=== PATIENT | male | born 1975 | race Caucasian/White ===

== ENCOUNTER → 2020-02-28 07:41 | Outpatient (CLI) | payer OTHER, SELFPAY ==
--- NOTE | 2020-02-28 07:57 | US_ITS ---
PROCEDURE: US ABDOMEN LIMITED CLINICAL INDICATION: ABD PAIN Upper abdominal pain COMPARISON: No exams were available for comparison FINDINGS: PANCREAS: Pancreas is not well delineated due to overlying bowel gas. CT or MRI without and with contrast with pancreatic protocol may provide further evaluation if clinically desired. LIVER: No focal liver lesions demonstrated. Homogeneous echogenicity. No intrahepatic biliary ductal dilatation evident. There is appropriate direction of blood flow within a non dilated portal vein. There is mild hepatic steatosis. RIGHT KIDNEY: Unremarkable. Normal size and echogenicity. No hydronephrosis GALLBLADDER: No gallstones, gallbladder wall thickening, pericholecystic fluid, or biliary dilatation. IMPRESSION: Mild hepatic steatosis otherwise negative limited abdominal ultrasound as detailed above Dictated by: Jonathan Godoy MD 02/28/2020 18:06 Jonathan Godoy MD in [place] 02/28/2020 18:06
== END ==
PROVIDERS: PCP Family Medicine; Visit Provider Nurse Practitioner Family
DX: R10.11 Right upper quadrant pain (principal)
CPT/HCPCS: 76705

== ENCOUNTER → 2020-03-27 15:47 | Outpatient (CLI) | payer OTHER, SELFPAY | PROVIDERS: PCP Nurse Practitioner Family; Visit Provider Nurse Practitioner Family | DX: Z03.818 Encounter for observation for suspected exposure to other biological agents ruled out (principal) | CPT/HCPCS: U0003 ==

== ENCOUNTER 2020-10-27 09:34 | Emergency (ER) | payer OTHER, SELFPAY ==
[2020-10-27 09:45] VITALS: BP 140/96; PULSE 91; RESP 17; TEMP 37.1; O2SAT 98; BMI 30.7
--- NOTE | 2020-10-27 10:07 | HMH.EDUTC ---
[facility] [place] Clinical Impression: Gout attack Qualifiers: Gout site: foot Gout etiology: unspecified cause Laterality: left Qualified Code(s): M10.9 - Gout, unspecified Disposition: Home, Self-Care Condition on Discharge: Good Instructions: DI for Gout, Colchicine Additional Instructions: Take medication as prescribed Follow up with Family Doctor if no improvement or any worsening of symptoms Return if needed Straight to ER if any life threatening symptoms Prescriptions: Colchicine [Colcrys 0.6mg tablet] 0.6 mg PO DIRECTED #15 tab Transmission Status: Pending to [facility] #[id number] Referrals: Joshua Gilbert MD [Primary Care Provider] - As needed Forms: Work/School Release Time of Disposition: 10:29 Medical Decision Making - Adeel Inquiry Pt receiving controlled substance: No Adeel was queried for this patient: No Vital Signs: 10/27/20 09:45 Temperature 98.7 F Temperature Source Oral Pulse Rate [Right Brachial] 91 H Respiratory Rate 17 Blood Pressure [Right Arm] 140/96 H Blood Pressure Mean [Right Arm] 110 Blood Pressure Source [Right Arm] Automatic Cuff Blood Pressure Position [Right Arm] Sitting 02 Sat by Pulse Oximetry 98 Oxygen Delivery Method Room Air Orders (Tests/Meds): ED MEDICATIONS Discontinued Medications Generic Name Dose Route Start Last Admin Trade Name Barrieq PRN Reason Stop Dose Admin Ketorolac Tromethamine 60 mg 10/27/20 10:07 10/27/20 10:17 Ketorolac 60mg/2ml Vial IM 10/27/20 10:08 60 mg ONCE ONE Administration Methylprednisolone Sodium Succinate 125 mg 10/27/20 10:07 10/27/20 10:17 Methylprednisolone Sod Succ 125mg Vial IM 10/27/20 10:08 125 mg ONCE ONE Administration Medical Decision Narrative: Recommended uric acid blood test and patient declined states that this is pain like he has when he has gout attack and reports that he has taken Torodol and Solu medrol in the past without complications or reactions [facility] [place] - General Stated complaint: left foot pain Time Seen by Provider: 10/27/20 10:07 Mode of Arrival: Ambulatory Source of Information: Patient Limitations: No Limitations Description of Symptoms (Recalled from Triage Doc. by RN): PATIENT C/O GOUT TO LEFT FOOT SINCE THIS MORNING HEENT Symptoms (Recalled from RN notes): No Resp Symptoms (Recalled from RN notes): No Skin Symptoms (Recalled from RN notes): No MS Symptoms (Recalled from RN notes): Yes Functional Status (Recalled from RN notes): WNL - History of Present Illness Provider Complaint: Patient states that he has a history of gout attacks States that he woke up this morning having pain and redness in the side of his left foot like he has when he has a gout attack States that he usually has to come in and get a couple shots to help it - Related Data Home Medications Medication Instructions Recorded Confirmed Valsartan [Valsartan 80mg 80 mg PO DAILY 10/27/20 10/27/20 Tablets] Previous Rx's Medication Instructions Recorded Colchicine [Colcrys 0.6mg tablet] 0.6 mg PO DIRECTED #15 tab 10/27/20 Allergies Allergy/AdvReac Type Severity Reaction Status Date / Time fish oil [FISH OIL] Allergy Unknown Verified 07/21/19 17:02 shellfish derived Allergy Unknown THROAT Verified 07/21/19 17:02 [From SHELLFISH (FOOD/DRUG)] SWELLING - Worker's Comp Is this a Worker's Comp case?: No [facility] History - Hepatitis A Screen Drug use history?: No High risk sexual behaviors?: No History of sexually transmitted infection?: No Currently employed?: No Childcare worker?: No Do you have indoor plumbing?: Yes Do you have electricity?: Yes Attestation statement:: This patient has been screened for Hepatitis A risk factors. I have reviewed the patient's past medical history: Yes Medical History: Reports:: Hypertension Other Medical History: Reports: Arthritis, Other Comment: essential tremor Laterality Cases: Right: Carpal Tunnel Release, Bilat
[2020-10-27 10:30] VITALS: BP 140/96; PULSE 91; RESP 17; TEMP 37.1; O2SAT 98
== END 2020-10-27 10:36 | disposition home or self-care (01) ==
PROVIDERS: Emergency Provider Nurse Practitioner; PCP Family Medicine
DX: M10.072 Idiopathic gout, left ankle and foot (principal); I10 Essential (primary) hypertension; F17.210 Nicotine dependence, cigarettes, uncomplicated
CPT/HCPCS: 96372; 99202; G0463

== ENCOUNTER 2020-11-27 11:26 | Emergency (ER) | payer OTHER, SELFPAY ==
[2020-11-27 11:27] VITALS: BP 149/90; PULSE 101; RESP 18; TEMP 37; O2SAT 99; BMI 30.3
[2020-11-27 12:36] VITALS: BP 140/91; PULSE 105; RESP 18; TEMP 37.1; O2SAT 99; BMI 30.4
--- NOTE | 2020-11-27 12:46 | HMH.EDUTC ---
[facility] [place] Disposition Clinical Impression: Nausea vomiting and diarrhea Disposition: Home, Self-Care Condition on Discharge: Good Instructions: Diarrhea, Nausea and Vomiting-Adult Additional Instructions: Drink extra fluids with and between meals. If you have difficulty drinking, try very small amounts of water or suck on ice chips. ? Avoid fruit juices, as these do not replace minerals and can actually increase diarrhea. ? Children and adults can use sports drinks to replenish electrolytes. Younger children and infants should use products formulated for children, like oral rehydration solutions. ? Eat food in small amounts and let your stomach recover. ? Get lots of rest. You may feel tired or weak. ? No greasy or fried foods for the next 24-48 hours BRAT diet Bananas Rice Apples and [place] ? Make sure to drink plenty of liquids ? Return if needed ? Straight to ER if any life threatening symptoms ? Zofran as prescribed ? You was given an outpatient order for diarrhea panel, please collect specimen and bring back to outpatient lab then call back to the [facility] or follow up with family doctor for results ? Follow up with family doctor in the next 48-72 hours if no improvement or any worsening of symptoms Prescriptions: Ondansetron [Zofran 4mg ODT] 4 mg PO TIDP PRN #12 tab PRN Reason: Nausea Transmission Status: Received by [facility] #[id number] Referrals: Provider,Referral, [Primary Care Provider] - As needed Forms: Work/School Release Time of Disposition: 14:15 Medical Decision Making - Adeel Inquiry Pt receiving controlled substance: No Adeel was queried for this patient: No Vital Signs: 11/27/20 11:27 11/27/20 12:36 11/27/20 13:50 Temperature 98.6 F 98.7 F 98 F Temperature Source Oral Oral Pulse Rate 92 H Pulse Rate [Right] 101 H 105 H Respiratory Rate 18 18 16 Blood Pressure 132/89 Blood Pressure [Right Arm] 149/90 H 140/91 H Blood Pressure Mean [Right Arm] 109 107 02 Sat by Pulse Oximetry 99 99 Oxygen Delivery Method Room Air - Lab Data Lab Results 11/27/20 12:41: Influenza Type A Ag Negative, Influenza Type B Ag Negative Orders (Tests/Meds): ED MEDICATIONS Discontinued Medications Generic Name Dose Route Start Last Admin Trade Name Freq PRN Reason Stop Dose Admin Sodium Chloride 1,000 mls @ 999 mls/hr 11/27/20 13:15 11/27/20 13:20 Sod Chlor 0.9% 1000ml Bag IV 11/27/20 14:15 999 mls/hr .Q1H1M MARILYN Administration Ondansetron HCl 4 mg 11/27/20 12:47 11/27/20 13:20 Ondansetron 4mg/2ml Vial IV 11/27/20 12:48 4 mg ONCE ONE Administration Medical Decision Narrative: Fluid bolus complete patient states that he is feeling much better no vomiting or diarrhea since arrival [facility] [place] HPI - General Stated complaint: vomiting, diarrhea, fever Time Seen by Provider: 11/27/20 12:46 Mode of Arrival: Ambulatory Limitations: No Limitations Description of Symptoms (Recalled from Triage Doc. by RN): pt thinks he has the flu or food poisoning. pt says he has had n/v/d and chills since two hours after eating at [employer] wednesday. HEENT Symptoms (Recalled from RN notes): No Resp Symptoms (Recalled from RN notes): No Skin Symptoms (Recalled from RN notes): No MS Symptoms (Recalled from RN notes): No Functional Status (Recalled from RN notes): na - History of Present Illness Provider Complaint: Patient state that he eat a resturant on Wednesday and ever since he has been having vomiting and diarrhea State that he is not sure if he may have got food poison or if he has a stomach bug State that he felt like he was going to get dehydrated so he came in to get checked - Related Data Home Medications Medication Instructions Recorded Confirmed Valsartan [Valsartan 80mg 80 mg PO DAILY 10/27/20 10/27/20 Tablets] Previous Rx's Medication Instructions Recorded Colchicine [Colcrys 0.6mg tablet] 0.6 mg PO DIRECTED #15 tab 10/27/20 Ondansetron [Zofran 4
[2020-11-27 13:21] LABS: UTC Influenza A Antigen Negative (Negative); UTC Influenza B Antigen Negative (Negative)
[2020-11-27 13:50] VITALS: BP 132/89; PULSE 92; RESP 16; TEMP 36.6
== END 2020-11-27 14:20 | disposition home or self-care (01) ==
PROVIDERS: Emergency Provider Nurse Practitioner
DX: R11.2 Nausea with vomiting, unspecified (principal); I10 Essential (primary) hypertension; F17.210 Nicotine dependence, cigarettes, uncomplicated
CPT/HCPCS: 87804; 96365; 96367; 99202; G0463; J2405

== ENCOUNTER → 2021-03-31 19:25 | Outpatient (CLI) | payer OTHER, SELFPAY | PROVIDERS: Visit Provider Nurse Practitioner Family | DX: Z20.822 Contact with and (suspected) exposure to COVID-19 (principal) | CPT/HCPCS: C9803; U0003; U0005 ==

== ENCOUNTER 2021-08-14 15:24 | Emergency (ER) | payer OTHER, SELFPAY ==
[2021-08-14 16:13] VITALS: BP 171/114; PULSE 104; RESP 16; TEMP 36.8; O2SAT 96; BMI 30.3
--- NOTE | 2021-08-14 16:15 | HMH.EDUTC ---
[facility] [place] Clinical Impression: Serous otitis media Qualifiers: Chronicity: acute Laterality: bilateral Recurrence: non-recurrent Qualified Code(s): H65.03 - Acute serous otitis media, bilateral Disposition: Home, Self-Care Condition on Discharge: Good Instructions: Middle Ear Infection Additional Instructions: Drink plenty of fluids. Take tylenol or ibuprofen for pain or fever. Take the medications as directed. Follow up with your regular doctor. GO TO THE ER FOR ANY WORSENING SYMPTOMS Don't start the oral steroids until tomorrow, since you had the shot here today. Avoid products with pseudophed in them. It appears they run your blood pressure up. Prescriptions: Amoxicillin [Amoxicillin 500mg Tab] 500 mg PO TID 10 Days #30 tab Transmission Status: Received by [facility] #[id number] methylPREDNISolone [Medrol] 4 mg PO DIRECTED 6 Days #21 packet Transmission Status: Received by [facility] #[id number] Referrals: Joshua Gilbert MD [Primary Care Provider] - Forms: Work/School Release Time of Disposition: 17:10 Medical Decision Making - Medical Records Medical records reviewed: No: I reviewed the patient's medical records. - Adeel Inquiry Pt receiving controlled substance: No Vital Signs: 08/14/21 16:13 08/14/21 17:21 Temperature 98.2 F 98.2 F Temperature Source Oral Pulse Rate 104 H Pulse Rate [Left] 104 H Respiratory Rate 16 16 Blood Pressure 171/114 H Blood Pressure [Right Arm] 171/114 H Blood Pressure Mean [Right Arm] 133 02 Sat by Pulse Oximetry 96 - Lab Data Lab results reviewed: Yes: I reviewed the patient's lab results. Orders (Tests/Meds): ED MEDICATIONS Discontinued Medications Generic Name Dose Route Start Last Admin Trade Name Freq PRN Reason Stop Dose Admin Dexamethasone Sodium Phosphate 8 mg 08/14/21 16:56 Dexamethasone 4mg/Ml 1ml Vial IM 08/14/21 16:57 ONCE ONE Methylprednisolone Sodium Succinate 125 mg 08/14/21 17:03 08/14/21 17:04 Methylprednisolone Sod Succ 125mg Vial IM 08/14/21 17:04 125 mg ONCE ONE Administration [facility] [place] - General Stated complaint: both ears possible fluid Time Seen by Provider: 08/14/21 16:15 - History of Present Illness Provider Complaint: He states that for the past 2 days he has had bilateral ear pressure, mild pain and dizziness when he has to move his head quickly. He gets ear infections this time of the year. He took claritin d this morning. It did seem to help his ear pressue some, but it caused his blood pressure to go up. He denies any fever, chills, cough, or chest congestion. He does have sinus congestion and clear nasal drainage. - Related Data Home Medications Medication Instructions Recorded Confirmed Valsartan [Valsartan 80mg 80 mg PO DAILY 10/27/20 03/31/21 Tablets] Previous Rx's Medication Instructions Recorded colchicine 0.6 mg tablet 0.6 mg PO BID #30 tab 12/10/20 Amoxicillin [Amoxicillin 500mg Tab] 500 mg PO TID 10 Days #30 tab 08/14/21 methylPREDNISolone [Medrol] 4 mg PO DIRECTED 6 Days #21 08/14/21 packet Allergies Allergy/AdvReac Type Severity Reaction Status Date / Time fish oil [FISH OIL] Allergy Unknown Verified 03/31/21 13:22 shellfish derived Allergy Unknown THROAT Verified 03/31/21 13:22 [From SHELLFISH (FOOD/DRUG)] SWELLING [facility] History - Hepatitis A Screen Attestation statement:: This patient has been screened for Hepatitis A risk factors. I have reviewed the patient's past medical history: Yes Medical History: Reports:: Hypertension Other Medical History: Reports: Arthritis, Other Comment: essential tremor. gout Laterality Cases: Right: Carpal Tunnel Release, Bilateral: Arthroscopy Knee Amputation: No Fractures: No - Social History Smoking Status: Current every day smoker Tobacco Type: cigarettes # Packs/Day (cigarettes): 1 #Yrs smoked (if former smoker): 10 Alcohol Intake: never
[2021-08-14 17:21] VITALS: BP 171/114; PULSE 104; RESP 16; TEMP 36.8
== END 2021-08-14 17:22 | disposition home or self-care (01) ==
PROVIDERS: Emergency Provider Nurse Practitioner Family; PCP Family Medicine
DX: H65.03 Acute serous otitis media, bilateral (principal); R42 Dizziness and giddiness; I10 Essential (primary) hypertension; F17.210 Nicotine dependence, cigarettes, uncomplicated
CPT/HCPCS: 96375; 99202; 99212; 99213; G0463

== ENCOUNTER 2022-02-04 11:14 | Emergency (ER) | payer OTHER, SELFPAY ==
[2022-02-04 12:15] VITALS: BP 150/90; PULSE 78; RESP 18; TEMP 36.6; O2SAT 97; BMI 30.3
--- NOTE | 2022-02-04 12:42 | HMH.EDUTC ---
[facility] [place] Disposition Clinical Impression: Gout attack Qualifiers: Gout site: ankle Gout etiology: unspecified cause Laterality: left Qualified Code(s): M10.9 - Gout, unspecified Disposition: Home, Self-Care Condition on Discharge: Good Instructions: DI for Gout, Gout, Colchicine Additional Instructions: Over the counter Ibuprofen may help with pain Follow up with your Family Doctor if no improvement or any worsening of symptoms Take medication as prescribed Return if needed Straight to ER if any life threatening symptoms Prescriptions: Colchicine [Colcrys 0.6mg tablet] 0.6 mg PO DIRECTED #3 tab Transmission Status: Pending to [facility] #[id number] Referrals: Juan Pack MD [Primary Care Provider] - As needed Time of Disposition: 12:56 Medical Decision Making - Adeel Inquiry Pt receiving controlled substance: No Adeel was queried for this patient: No Vital Signs: 02/04/22 12:15 Temperature 97.8 F Temperature Source Oral Pulse Rate [Right Brachial] 78 Respiratory Rate 18 Blood Pressure [Right Arm] 150/90 H Blood Pressure Mean [Right Arm] 110 Blood Pressure Source [Right Arm] Automatic Cuff Blood Pressure Position [Right Arm] Sitting 02 Sat by Pulse Oximetry 97 Oxygen Delivery Method Room Air Medical Decision Narrative: Patient declined uric acid and declined Toradol and Solumedrol injections [facility] [place] HPI - General Stated complaint: gout in left ankle Time Seen by Provider: 02/04/22 12:42 Mode of Arrival: Ambulatory Source of Information: Patient Limitations: No Limitations Description of Symptoms (Recalled from Triage Doc. by RN): PATIENT C/O GOUT IN LEFT ANKLE SINCE THIS MORNING. HE REPORTS HE GETS IT TWICE A YEAR HEENT Symptoms (Recalled from RN notes): No Resp Symptoms (Recalled from RN notes): No Skin Symptoms (Recalled from RN notes): No MS Symptoms (Recalled from RN notes): Yes Functional Status (Recalled from RN notes): WNL - History of Present Illness Provider Complaint: Patient state that he has had gout severa times and usually gets it about twice a year States that he woke up this morning with pain in his left ankle like he gets with gout so he came in to see if he could get the purple pills that usually helps him - Related Data Home Medications Medication Instructions Recorded Confirmed Valsartan [Valsartan 80mg 80 mg PO DAILY 05/02/21 10/04/21 Tablets] Previous Rx's Medication Instructions Recorded colchicine 0.6 mg tablet 0.6 mg PO BID #30 tab 12/10/20 Amoxicillin [Amoxicillin 500mg Tab] 500 mg PO TID 10 Days #30 tab 08/14/21 methylPREDNISolone [Medrol] 4 mg PO DIRECTED 6 Days #21 08/14/21 packet Colchicine [Colcrys 0.6mg tablet] 0.6 mg PO DIRECTED #3 tab 02/04/22 Allergies Allergy/AdvReac Type Severity Reaction Status Date / Time fish oil [FISH OIL] Allergy Unknown Verified 03/31/21 13:22 shellfish derived Allergy Unknown THROAT Verified 03/31/21 13:22 [From SHELLFISH (FOOD/DRUG)] SWELLING - Worker's Comp Is this a Worker's Comp case?: No [facility] History - Hepatitis A Screen Attestation statement:: This patient has been screened for Hepatitis A risk factors. I have reviewed the patient's past medical history: Yes Medical History: Reports:: Hypertension Other Medical History: Reports: Arthritis, Other Comment: essential tremor. gout Laterality Cases: Right: Carpal Tunnel Release, Bilateral: Arthroscopy Knee Amputation: No Fractures: No - Social History Smoking Status: Current every day smoker Tobacco Type: cigarettes # Packs/Day (cigarettes): 1 #Yrs smoked (if former smoker): 10 Alcohol Intake: never Alcohol Intake Frequency:: holidays/special occasions only Substance Use Type: denies use Occupational Status: other Housing: house Household Members: children Comment: Pt states that he travels to [place] & [place] for work. Family Hx:: Stroke, Cancer ROS Obtained: Yes All systems reviewed & no additional complaints, Yes
[2022-02-04 12:55] VITALS: BP 150/90; PULSE 78; RESP 18; TEMP 36.6; O2SAT 97
== END 2022-02-04 13:03 | disposition home or self-care (01) ==
PROVIDERS: Emergency Provider Nurse Practitioner; PCP Family Medicine
DX: M10.9 Gout, unspecified (principal); F17.210 Nicotine dependence, cigarettes, uncomplicated
CPT/HCPCS: 99212; G0463

== ENCOUNTER 2022-03-23 17:09 | Emergency (ER) | payer OTHER, SELFPAY ==
[2022-03-23 17:25] VITALS: BP 150/92; PULSE 90; RESP 20; TEMP 36.7; O2SAT 98; BMI 30.4
--- NOTE | 2022-03-23 17:38 | EXP.UTC ---
Discharge Plan Disposition Patient Disposition: Home, Self-Care Condition: Good Prescriptions Prescriptions: New cyclobenzaprine 10 mg tablet 10 mg PO TID PRN (Reason: muscle spasm) Qty: 15 0RF etodolac 200 mg capsule 200 mg PO Q8H PRN (Reason: pain) Qty: 12 0RF No Action colchicine 0.6 mg tablet 0.6 mg PO BID Qty: 30 0RF Rx Instructions: Take 2 tablets now and then 1 tablet an hour later afterwards take one table twice daily. methylprednisolone 4 MG tablets,dose pack 4 mg PO DIRECTED 6 Days Qty: 21 0RF amoxicillin 500 MG tablet 500 mg PO TID 10 Days Qty: 30 0RF colchicine 0.6 MG tablet 0.6 mg PO DIRECTED Qty: 3 0RF Rx Instructions: Take 2 tablets (1.2mg) now followed by 1 tablet (0.6mg) 1 hour later. valsartan 80 MG tablet 80 mg PO DAILY Referrals Follow up/Referrals: Emilia Parada APRN [Primary Care Provider] - See instructions Activity Restrictions/Add. Instructions Additional Instructions/Restrictions: *Etodolac ladarius 8 hours with meal as needed for pain/inflammation *Remember you had a Toradol shot in the clinic today, which is similar to Motrin and Etodolac so do not take any more tonight *Not additional anti-inflammatory like Ibuprofen motrin, aleve, advil with the above amount of Etodolac. You can still take Tylenol every 4 hours as needed if you need something else for pain *Ice 20 minutes every 2 hours for the first 48 hours after the initial injury followed by moist heat every 20 minutes 3-4 times a day to affected area *Muscle relaxer every 8 hours as needed for muscle spasms but remember, it WILL cause drowsiness You cannot take it and drive, operate machinery or care for small children. *Keep this area active, no movement leads to more stiffness, However take it easy and avoid heavy lifting pushing or pulling *Follow up with you family doctor if no improvement for further treatment Clinical Impressions Clinical Impression: Low back pain Stand Alone Forms Stand Alone Forms: Work/School Release Instructions Patient Instructions: Low Back Pain, Cyclobenzaprine, Etodolac Discharge ED Provider: Rosa Raza [facility] General Stated complaint: back pain Time Seen by Provider: 03/23/22 17:38 History of Present Illness Provider Complaint: Patient states that he bent over to put on his shoes this morning and he felt his back go out States that he has some slipped disks in his back and when this happens he has to get something to help with the inflammation to help ease his back pain States that today his back has continued throughout the day so this evening he came in to get it checked Denies fever, denies loss of control of bowel or bladder Related Data Home Medications Medication Instructions Recorded Confirmed valsartan 80 mg tablet 80 mg PO DAILY Hypertension 10/27/20 03/31/21 Previous Rx's Medication Instructions Recorded colchicine 0.6 mg tablet 0.6 mg PO BID #30 tabs 12/10/20 amoxicillin 500 mg tablet 500 mg PO TID 10 days #30 tabs 08/14/21 methylprednisolone 4 mg tablets in 4 mg PO DIRECTED 6 days #21 08/14/21 a dose pack packets colchicine 0.6 mg tablet 0.6 mg PO DIRECTED #3 tabs 02/04/22 cyclobenzaprine 10 mg tablet 10 mg PO TID PRN muscle spasm #15 03/23/22 tabs etodolac 200 mg capsule 200 mg PO Q8H PRN pain #12 caps 03/23/22 Allergies Allergy/AdvReac Type Severity Reaction Status Date / Time fish oil [FISH OIL] Allergy Unknown Verified 03/31/21 13:22 shellfish derived Allergy Unknown THROAT Verified 03/31/21 13:22 [From SHELLFISH (FOOD/DRUG)] SWELLING PFSH PFS Medical History (Updated 03/23/22 @ 17:47 by Rosa Raza APRN) Hyperlipidemia Hypertension Social History (Updated 03/23/22 @ 17:41 by Britt Monae RN) Smoking Status: Current every day smoker tobacco type: cigarettes packs per day: 1 alcohol intake: never substance use type: denies use current occupational status: ot
[2022-03-23 18:00] VITALS: BP 150/92; PULSE 90; RESP 20; TEMP 36.7; O2SAT 98
== END 2022-03-23 18:09 | disposition home or self-care (01) ==
PROVIDERS: Emergency Provider Nurse Practitioner; PCP Nurse Practitioner Family
DX: M54.50 Low back pain, unspecified (principal); I10 Essential (primary) hypertension; E78.5 Hyperlipidemia, unspecified; M62.838 Other muscle spasm; F17.210 Nicotine dependence, cigarettes, uncomplicated; Z79.52 Long term (current) use of systemic steroids; Z91.013 Allergy to seafood
CPT/HCPCS: 96372; 99213; G0463

== ENCOUNTER 2023-05-09 11:17 | Emergency (ER) | payer OTHER, SELFPAY ==
[2023-05-09 11:35] VITALS: BP 149/98; PULSE 112; RESP 20; TEMP 37.1; O2SAT 98; BMI 30.3
--- NOTE | 2023-05-09 11:53 | EXP.UTC ---
Discharge Plan Disposition Patient Disposition: Home, Self-Care Condition: Good Prescriptions Prescriptions: New colchicine [Colcrys] 0.6 mg tablet 0.6 mg PO DIRECTED Qty: 6 0RF Rx Instructions: Take (2) of the 0.6mg tablets now wait one hour then take (1) of the 0.6mg tablets for gout flare May repeat regimen in 72 hours if still having symptoms No Action tizanidine 4 mg capsule 4 mg PO BID PRN (Reason: muscle spasticity) Qty: 20 0RF naproxen 500 mg tablet 500 mg PO BID Qty: 30 0RF propranolol 160 mg capsule,extended release 24 hr 160 mg PO DAILY metformin 500 mg tablet extended release 24 hr 500 mg PO DAILY Patient Comments: TAKE 1 TABLET BY MOUTH EVERY DAY WITH THE EVENING MEAL losartan 100 mg tablet 100 mg PO DAILY Patient Comments: TAKE 1 TABLET BY MOUTH EVERY DAY Referrals Follow up/Referrals: Juan Pack MD [Primary Care Provider] - See instructions Activity Restrictions/Add. Instructions Additional Instructions/Restrictions: Take medication as prescribed Follow up with your Family Doctor for further evaluation and treatment REturn if needed Striaght to ER if any life threatening symptoms Clinical Impressions Clinical Impression: Gout attack Qualifiers: Gout site: unspecified site Gout etiology: unspecified cause Qualified Code(s): M10.9 - Gout, unspecified Instructions Patient Instructions: Gout, DI for Gout Discharge ED Provider: Rosa Raza [facility] General Stated complaint: PAIN LEFT ANKLE Mode of Arrival: Ambulatory Source of Information: Patient Limitations: No Limitations Time Seen by Provider: 05/09/23 11:53 Description of Symptoms (Recalled from Triage Doc. by RN): PATIENT C/O PAIN AND BURNING IN LEFT ANKLE SINCE THIS MORNING HEENT Symptoms (Recalled from RN notes): No Resp Symptoms (Recalled from RN notes): No Skin Symptoms (Recalled from RN notes): No MS Symptoms (Recalled from RN notes): Yes Functional Status (Recalled from RN notes): WNL History of Present Illness Provider Complaint: Patient states that he has a history of gout States that he woke up this morning with pain in his left ankle and it was sore to the touch and hurts even for his sock to touch it like he gets when he has gout States he came in to get something to help Related Data Home Medications Medication Instructions Recorded Confirmed propranolol 160 mg capsule,24 160 mg PO DAILY 08/12/22 02/17/23 hr,extended release losartan 100 mg tablet 100 mg PO DAILY 11/16/22 02/17/23 metformin 500 mg tablet,extended 500 mg PO DAILY 11/16/22 02/17/23 release 24 hr Previous Rx's Medication Instructions Recorded naproxen 500 mg tablet 500 mg PO BID #30 tabs 02/15/23 tizanidine 4 mg capsule 4 mg PO BID PRN muscle spasticity 02/15/23 #20 caps colchicine 0.6 mg tablet (Colcrys) 0.6 mg PO DIRECTED #6 tabs 05/09/23 Allergies Allergy/AdvReac Type Severity Reaction Status Date / Time fish oil [FISH OIL] Allergy Unknown Verified 02/17/23 14:07 shellfish derived Allergy Unknown THROAT Verified 02/17/23 14:07 [From SHELLFISH (FOOD/DRUG)] SWELLING Worker's Comp Is this a Worker's Comp case?: No [facility] Disclaimer: The information contained in this section may have been updated after the patient was seen, as this information can be updated by other users. Medical History Hyperlipidemia Hypertension Social History Smoking Status: Current every day smoker tobacco type: cigarettes packs per day: 1 alcohol intake: never substance use type: denies use current occupational status: other Travel in the last 8 weeks: None household members: children housing: house ROS Obtained: Yes All systems reviewed & no additional complaints except as documented and Yes Systems reviewed as appropriate & no additional complaints exc
[2023-05-09 12:26] VITALS: BP 149/98; PULSE 112; RESP 20; TEMP 37.1; O2SAT 98
== END 2023-05-09 12:30 | disposition home or self-care (01) ==
PROVIDERS: Emergency Provider Nurse Practitioner; PCP Family Medicine
DX: M10.072 Idiopathic gout, left ankle and foot (principal); F17.210 Nicotine dependence, cigarettes, uncomplicated; I10 Essential (primary) hypertension; E78.5 Hyperlipidemia, unspecified; M25.572 Pain in left ankle and joints of left foot
CPT/HCPCS: 96372; 99212; 99214; G0463

== ENCOUNTER → 2023-05-19 23:24 | Outpatient (CLI) | payer OTHER, SELFPAY ==
[2023-05-19 18:06] LABS: Basophils # 0.1 K/mm3 (0-0.2); Basophils % 0.8 % (0.1-2.0); Eosinophils # 0.3 K/mm3 (0.0-0.4); Eosinophils % 2.7 % (0.1-12.0); Hematocrit 45.1 % (42.0-52.0); Hemoglobin 14.8 g/dL (14.1-18.0); Lymphocytes # 3.7 K/mm3 (0.7-4.5); Lymphocytes % 33.2 % (10-50); Mean Corpuscular HGB Conc 32.8 g/dL (31.8-35.4); Mean Corpuscular Hemoglobin 29.5 pg (27.0-31.2); Mean Platelet Volume 9.1 fl (7.4-10.4); Monocytes # 0.7 K/mm3 (0.1-1.0); Monocytes % 6.7 % (1.7-9.3); Neutrophils # 6.3 K/mm3 (1.8-7.8); Neutrophils % 56.6 % (37.0-80.0); Platelet Count 271 K/mm3 (142-424); Red Blood Count 5.01 M/mm3 (4.60-6.20); White Blood Count 11.1 K/mm3 (4.8-10.8)
[2023-05-19 18:12] LABS: Alanine Aminotransferase 24 U/L (12-78); Alkaline Phosphatase 102 U/L (38-126); Aspartate Amino Transferase 26 U/L (17-59); Bilirubin,Total 0.4 mg/dl (0.2-1.3); Blood Urea Nitrogen 8 mg/dl (9-20); Calcium 9.5 mg/dl (8.4-10.2); Carbon Dioxide 29 mmol/L (22.0-30.0); Chloride 100 mmol/L (98-107); Estimated Glomerular Filt Rate 104 ml/min (>60); GFR (African American) 125 ML/MIN (>60); Glucose 115 mg/dl (74-100); Total Protein,Serum 7.5 g/dl (6.3-8.2); Uric Acid 6.9 mg/dl (3.5-8.5)
[2023-05-19 18:15] LABS: Albumin Level 4.2 g/dl (3.5-5.0); Albumin/Globulin Ratio 1.3 (1.1-1.8); Globulin 3.3 g/dL (1.3-3.2); Potassium 4.4 mmoL/L (3.5-5.1)
[2023-05-19 18:56] LABS: Anion Gap 13.4 mEq/L (5-15); Sodium 138 mmol/L (136-145)
== END ==
LOC: LAB.DROPOF 23:24
PROVIDERS: PCP Family Medicine; Visit Provider Nurse Practitioner Family
DX: M10.9 Gout, unspecified (principal); M25.472 Effusion, left ankle; M25.572 Pain in left ankle and joints of left foot
CPT/HCPCS: 80053; 84550; 85025

== ENCOUNTER 2023-05-28 11:38 | Emergency (ER) | payer OTHER, SELFPAY ==
[2023-05-28 12:35] VITALS: BP 166/98; PULSE 97; RESP 18; TEMP 36.7; O2SAT 98; BMI 33.3
--- NOTE | 2023-05-28 12:37 | EXP.UTC ---
Discharge Plan Disposition Patient Disposition: Home, Self-Care Condition: Good Prescriptions Prescriptions: New methylprednisolone 4 mg Tablets,Dose Pack 4 mg PO DIRECTED Qty: 21 0RF No Action propranolol 160 mg capsule,extended release 24 hr 160 mg PO DAILY metformin 500 mg tablet extended release 24 hr 500 mg PO DAILY Patient Comments: TAKE 1 TABLET BY MOUTH EVERY DAY WITH THE EVENING MEAL losartan 100 mg tablet 100 mg PO DAILY Patient Comments: TAKE 1 TABLET BY MOUTH EVERY DAY allopurinol 300 mg tablet 300 mg PO DAILY Qty: 90 3RF colchicine [Colcrys] 0.6 mg tablet 0.6 mg PO DIRECTED Qty: 6 0RF Rx Instructions: Take (2) of the 0.6mg tablets now wait one hour then take (1) of the 0.6mg tablets for gout flare May repeat regimen in 72 hours if still having symptoms simvastatin 40 mg tablet 40 mg PO DAILY Patient Comments: TAKE 1 TABLET BY MOUTH ONCE DAILY IN THE EVENING Referrals Follow up/Referrals: Juan Pack MD [Primary Care Provider] - See instructions Activity Restrictions/Add. Instructions Additional Instructions/Restrictions: Rest the extremity, Elevate the extremity as tolerated while you are resting. Take the steroids (methylprednisone) as directed, but don't start them until tomorrow since you had the steroid shot here today. Follow up with your regular doctor. GO TO THE ER FOR ANY WORSENING SYMPTOMS Clinical Impressions Clinical Impression: Gout attack Stand Alone Forms Stand Alone Forms: Work/School Release Instructions Patient Instructions: Gout, DI for Gout, Dexamethasone Injection Discharge ED Provider: Avel Love [facility] General Stated complaint: possible gout in ankle keft Time Seen by Provider: 05/28/23 12:37 History of Present Illness Provider Complaint: He states that for the past 2 days he has had worsening left ankle pain. He denies any injury. He states that he has had a history of gout. His gout symptoms usually hit him in this ankle, so he believes that is what is causing his current symptoms. Related Data Home Medications Medication Instructions Recorded Confirmed propranolol 160 mg capsule,24 160 mg PO DAILY 08/12/22 05/28/23 hr,extended release losartan 100 mg tablet 100 mg PO DAILY 11/16/22 05/28/23 metformin 500 mg tablet,extended 500 mg PO DAILY 11/16/22 05/28/23 release 24 hr simvastatin 40 mg tablet 40 mg PO DAILY 05/28/23 05/28/23 Previous Rx's Medication Instructions Recorded allopurinol 300 mg tablet 300 mg PO DAILY #90 tabs 05/19/23 colchicine 0.6 mg tablet (Colcrys) 0.6 mg PO DIRECTED #6 tabs 05/19/23 methylprednisolone 4 mg tablets in 4 mg PO DIRECTED #21 tabs 05/28/23 a dose pack Allergies Allergy/AdvReac Type Severity Reaction Status Date / Time fish oil [FISH OIL] Allergy Unknown Verified 05/28/23 12:52 shellfish derived Allergy Unknown THROAT Verified 05/28/23 12:52 [From SHELLFISH (FOOD/DRUG)] SWELLING PFSH PFS Disclaimer: The information contained in this section may have been updated after the patient was seen, as this information can be updated by other users. Medical History (Updated 05/28/23 @ 13:12 by Avel Love APRN) Gout attack Hyperlipidemia Hypertension Low back pain Nausea vomiting and diarrhea Serous otitis media Surgical History No significant past surgical history Family History Other No significant family history Social History Smoking Status: Current every day smoker tobacco type: cigarettes packs per day: 1 alcohol intake: never substance use type: denies use current occupational status: other Travel in the last 8 weeks: None household members: children housing: house ROS Obtained: Yes All systems reviewed & no additional co
[2023-05-28 13:49] VITALS: BP 166/92; PULSE 90; RESP 19; TEMP 36.8; O2SAT 99
== END 2023-05-28 13:50 | disposition home or self-care (01) ==
LOC: ER 11:40 → UTC 11:42
PROVIDERS: Emergency Provider Nurse Practitioner Family; PCP Family Medicine
DX: M10.072 Idiopathic gout, left ankle and foot (principal); I10 Essential (primary) hypertension; E78.5 Hyperlipidemia, unspecified; F17.210 Nicotine dependence, cigarettes, uncomplicated
CPT/HCPCS: 96372; 99212; 99214; G0463

== ENCOUNTER 2023-10-16 04:05 | Day surgery (SDC) | payer OTHER, SELFPAY ==
[2023-10-16] VITALS (56 sets, daily range): BP systolic 101–207; BP diastolic 66–164; PULSE 80–110; RESP 16–95; TEMP 35.1–36.8; O2SAT 83–936; BMI 34.0
--- NOTE | 2023-10-16 | IR_ITS ---
APPROVED REPORT Patient Location: Emergent Bag Bailer: ULISES Herrera RT (R) PROCEDURES Left heart catheterization Left ventriculogram Selective coronary angiogram Mechanical thrombectomy to the mid LAD Drug-eluting stent deployment to the mid LAD Drug-eluting stent deployment to the mid circumflex artery INDICATION Acute anterior myocardial infarction, Coronary artery disease, Status post cardiac arrest with cardiogenic shock with interval resolution of cardiogenic shock Informed consent was obtained prior to the procedure. COMPLICATIONS None Estimated Blood Loss: Less than 10 mls TECHNIQUE Upon arrival to the Floor Installer from the emergency department patient was overbreathing the ventilator and fighting the ventilator significantly. Because of the C-spine fracture and endotracheal intubation 100 mg of vecuronium was administered intravenously. One percent lidocaine used to anesthetize the right anterior aspect of the wrist. The right radial artery was accessed via the Seldinger technique. A 6 [place] sheath was placed in the right radial artery. 2.5 mg of Verapamil, 800 mcg of nitroglycerin, 1mg Lidocaine and 5000 U Heparin were given through the arterial sheath. The papa catheter was also used to perform left heart catheterization, left ventriculogram and selective coronary angiogram. Therapeutic heparin was administered giving a therapeutic ACT. The guide catheter was placed in the left main artery followed by a Choice PT extra-support wire being used to push through the acute thrombosis. A Politapollra mechanical thrombectomy catheter was advanced and a thrombus was aspirated. Following this a 3 mm x 12 mm noncompliant balloon was deployed at 18 [place] predilated the stenosis. A 3.5 x 12 mm Herminio frontier stent was deployed at 18 [place] reducing the critical stenosis to 0%. An initial severe stenosis was identified further down in the mid LAD which was along a tortuous bend and with subsequent injections appeared to improve most likely reflecting wire bias combined with wire spasm. An additional wire was placed into the circumflex artery and a 3.5 x 18 mm [place] frontier stent was deployed at 14 [place] reducing the severe stenosis to 0%. FLORA 0 flow was present down the LAD initially with FLORA-3 flow at the end of the procedure. FLORA-3 flow was present in the circumflex artery before and after the procedure. With improvement of the mid LAD stenosis with subsequent injection the wire was pulled back and the catheter was then used to perform right coronary artery angiography. At the end of the procedure the apparatus was removed the sheath was removed and hemostasis was achieved using TR banding. At the end of the interventional procedure patient was hypertensive 180/110 mmHg therefore nipride gtt was started along with propofol for sedation. ANGIOGRAPHIC RESULTS The left main artery Normal The left anterior descending artery Initially thrombosed immediately after a small diagonal artery and distal to the first septal executive kitchen manager. Following stenting there was wide patency of the stent. There was an additional 40 to 50% mid LAD stenosis. Given the FLORA-3 flow no additional intervention was performed on this mid LAD stenosis The circumflex artery Nondominant yet still large with a 70% stenosis in the mid large first obtuse marginal artery The right coronary artery Dominant with proximal long 50% stenosis and distal 20% stenoses The GOMEZ ventriculogram reveals Mid anterior apical hypokinesis estimate ejection fraction 20 to 25% The left ventricular end-diastolic pressure 35 mmHg Ascending aorta is dilated with no aneurysm or dissection identified IMPRESSION Acute anterior myocardial infarction as described above Successful mechanical thrombectomy followed by drug-eluting stent deployment to the mid LAD reducing the 100% occlusion to 0% Persistent 40 to 50% mid LAD stenosis believed to be mostly from wire bias/spasm possibly with some degree of atherosclerotic plaque however still accompanied by FLORA-3 flow therefore no manipulation or intervention was performed on this vessel Severe stenosis in the circumflex artery with successful stenting reducing the lesion to 0% Moderate nonflow limiting stenosis in the proximal dominant right coronary Mid anterior apical defect with reduced ejection fraction Elevated LVEDP Known C6 compression fracture believed to be acute fracture Known left-sided pneumothorax with chest tube in place Presence of NG tube with 180 mg of Brilinta and 325 mg of aspirin being placed on the NG tube Right femoral arterial access line PLAN 1. Start nipride drip due to hypertension and LV dysfunction 2. Continue Brilinta 90 mg twice daily and aspirin 81 mg daily 3. Supportive care for C-spine fracture with continued C-spine immobilization 4. Supportive care for left pneumothorax with left chest tube 5. Contact has been made with [facility] to transfer patient 6. Continue propofol drip Electronically signed by : Thanh Pittman MD 10/16/2023 08:01:15
[2023-10-16] MEDS: EPINEPHrine 0.1 MG/ML 10ML SYRINGE (CRASH CART) 1 MG IV ×7 (03:56→04:17)
[2023-10-16] MEDS: SODIUM CHLORIDE 0.9% IV (04:04)
[2023-10-16] MEDS: AMIODARONE HCL IV (04:04)
--- NOTE | 2023-10-16 04:46 | CT_ITS ---
PROCEDURE INFORMATION: Exam: CT Abdomen And Pelvis With Contrast Exam date and time: 10/16/2023 5:09 AM Age: 48 years old Clinical indication: Injury or trauma; Fall; Additional info: Fall, cardiac arrest TECHNIQUE: Imaging protocol: Computed tomography of the abdomen and pelvis with contrast. Radiation optimization: All CT scans at this facility use at least one of these dose optimization techniques: automated exposure control; mA and/or kV adjustment per patient size (includes targeted exams where dose is matched to clinical indication); or iterative reconstruction. Contrast material: ISOVUE; Contrast volume: 100 ml; Contrast route: IV; COMPARISON: CT ANGIO CHEST 10/16/2023 5:07 AM FINDINGS: Tubes, catheters and devices: Right femoral venous catheter in place with a small amount of adjacent hemorrhage. There is a nasogastric tube in appropriate position. Liver: No cirrhosis. No mass. There is no liver laceration present. Gallbladder and bile ducts: Normal. No calcified stones. No ductal dilation. Pancreas: No pancreatic ductal dilation. There is no laceration present. Spleen: No splenomegaly. There is no splenic laceration present. Adrenal glands: Normal. No mass. No laceration. Kidneys and ureters: No hydronephrosis. There is no renal laceration present. Stomach and bowel: Unremarkable. No obstruction. No mucosal thickening. Appendix: No evidence of appendicitis. Intraperitoneal space: Unremarkable. No free air. No significant fluid collection. Vasculature: No abdominal aortic aneurysm. No dissection. No rupture.. Lymph nodes: Unremarkable. No enlarged lymph nodes. Urinary bladder: The bladder is decompressed. There is a Stephen catheter present. Reproductive: Unremarkable as visualized. Bones/joints: No acute fracture. No dislocation. Soft tissues: Unremarkable. IMPRESSION: 1. No significant traumatic injury to the abdomen or pelvis. 2. Right femoral venous catheter in place with a small amount of adjacent hemorrhage. 3. Lines and tubes are in appropriate position.
--- NOTE | 2023-10-16 04:46 | CT_ITS ---
PROCEDURE INFORMATION: Exam: CT Cervical Spine Without Contrast Exam date and time: 10/16/2023 5:05 AM Age: 48 years old Clinical indication: Injury or trauma; Fall TECHNIQUE: Imaging protocol: Computed tomography of the cervical spine without contrast. Radiation optimization: All CT scans at this facility use at least one of these dose optimization techniques: automated exposure control; mA and/or kV adjustment per patient size (includes targeted exams where dose is matched to clinical indication); or iterative reconstruction. COMPARISON: CT ANGIO CHEST 10/16/2023 5:07 AM FINDINGS: Limitations: Patient motion artifacts degrade multiple images of this examination. These artifacts can cause image blurring and limit interpretation. Bones/joints: Cervical spine imaged from occiput to T1. Reversal of mid cervical curvature centered about C5-C6. Anterior superior C6 vertebral body height loss. 3 mm anterolisthesis of C5 over C6. Left C5-C6 paracentral probable disc bulge. No neuroforaminal stenosis. Possible mild C5-C6 prevertebral edema as visualized. Right anterior 2nd rib fracture described on separately dictated chest CT. Spinal epidural space: No definite epidural hematoma. Trachea: Airway unremarkable. Lungs: Bilateral upper lobe passive atelectasis. Pleural spaces: Right apical pneumothorax better characterized on separately dictated chest CT. Vasculature: Cervical vasculature unremarkable as visualized. Soft tissues: Neck soft tissues unremarkable. IMPRESSION: Possibly acute C6 compression mechanism fracture with C5 over C6 3 mm anterolisthesis. Recommend cervical MRI.
--- NOTE | 2023-10-16 04:46 | CT_ITS ---
PROCEDURE INFORMATION: Exam: CT Head Without Contrast Exam date and time: 10/16/2023 4:56 AM Age: 48 years old Clinical indication: Injury or trauma; Fall; Additional info: Fall, cardiac arrest TECHNIQUE: Imaging protocol: Computed tomography of the head without contrast. Radiation optimization: All CT scans at this facility use at least one of these dose optimization techniques: automated exposure control; mA and/or kV adjustment per patient size (includes targeted exams where dose is matched to clinical indication); or iterative reconstruction. COMPARISON: No relevant prior studies available. FINDINGS: Limitations: Patient motion artifacts degrade multiple images of this examination. These artifacts can cause image blurring and limit interpretation. Tubes, catheters and devices: Endotracheal tube. Nasogastric tube. Brain: No acute intracranial hemorrhage or territorial ischemia as visualized. No midline shift. Maher-white matter differentiation intact as visualized. The cortical sulci and subarachnoid cisterns are unremarkable. Cerebral ventricles: No ventriculomegaly. Paranasal sinuses: Bilateral maxillary sinus mucous retention cysts. Mastoid air cells: Visualized mastoid air cells are well aerated. Bones/joints: Unremarkable. No acute calvarial fracture. Soft tissues: Unremarkable. IMPRESSION: No acute intracranial process as visualized.
--- NOTE | 2023-10-16 04:46 | CT_ITS ---
PROCEDURE INFORMATION: Exam: CTA Chest With Contrast Exam date and time: 10/16/2023 5:07 AM Age: 48 years old Clinical indication: Injury or trauma; Fall; Additional info: Cardiac arrest TECHNIQUE: Imaging protocol: Computed tomographic angiography of the chest with contrast. Exam focused on the arteries. 3D rendering (Not supervised by radiologist): MIP and/or 3D reconstructed images were created by the technologist. Radiation optimization: All CT scans at this facility use at least one of these dose optimization techniques: automated exposure control; mA and/or kV adjustment per patient size (includes targeted exams where dose is matched to clinical indication); or iterative reconstruction. Contrast material: ISOUVE 370; Contrast volume: 100 ml; Contrast route: INTRAVENOUS (IV); COMPARISON: CT CERVICAL SPINE WO CON 10/16/2023 5:05 AM FINDINGS: Tubes, catheters and devices: Endotracheal tube and nasogastric tube in appropriate position. Pulmonary arteries: Normal. No pulmonary emboli. Aorta: Unremarkable. No aortic aneurysm. No aortic dissection. Lungs: Dense consolidations of the bilateral lower lobes. Pleural spaces: Left pneumothorax that makes up 60% of the thoracic volume. Heart: Unremarkable. No cardiomegaly. No pericardial effusion. Lymph nodes: Unremarkable. No enlarged lymph nodes. Bones/joints: Severely displaced fractures of the anterior left 2nd through 7th ribs. Acute fractures of the anterior right 2nd through 6th ribs. Soft tissues: Unremarkable. IMPRESSION: 1. Left pneumothorax that makes up 60% of the thoracic volume. 2. Significantly displaced fractures of the anterior left 2nd through 7th ribs. 3. Acute fractures of the anterior right 2nd through 6th ribs. 4. Dense consolidations of the bilateral lower lobes. This is concerning for pneumonia. 5. Endotracheal tube and nasogastric tube in appropriate position.
--- NOTE | 2023-10-16 04:52 | HMH.EDGENADL ---
Discharge Plan Disposition Patient Disposition: Still a Patient Prescriptions Prescriptions: No Action No Known Home Medications Referrals Follow up/Referrals: Provider,Referral, [Primary Care Provider] - See instructions Clinical Impressions Clinical Impression: STEMI (ST elevation myocardial infarction), C6 cervical fracture, Closed traumatic fracture of ribs of left side with pneumothorax, Cardiac arrest due to underlying cardiac condition Discharge ED Provider: Kevin Hernandez Adult HPI General Chief complaint: Cardiac Arrest/CPR Stated complaint: Code 500 Time Seen by Provider: 10/16/23 04:05 History of Present Illness HPI narrative: 48-year-old male with reported history of hypertension hyperlipidemia presents in cardiac arrest. Per family, patient complained of heartburn tonight, got up to be around 3:30 AM and was heard to fall. immediately went to find him, he had fallen onto a trash can near the bed. She could not get him out of that position. By the time first responders arrived the patient was in cardiac arrest and CPR was initiated. Patient was shocked once and was given epi once en route. CPR was initiated at approximately 345 by EMS. Related Data Home Medications Medication Instructions Recorded Confirmed No Known Home Medications 10/16/23 10/16/23 Allergies Allergy/AdvReac Type Severity Reaction Status Date / Time fish oil [FISH OIL] Allergy Unknown Verified 08/11/23 13:40 shellfish derived Allergy Unknown THROAT Verified 08/11/23 13:40 [From SHELLFISH (FOOD/DRUG)] S[facility] Disclaimer: The information contained in this section may have been updated after the patient was seen, as this information can be updated by other users. Medical History (Updated 10/16/23 @ 07:01 by Kevin Hernandez MD) Pre-diabetes Low back pain Hyperlipidemia Hypertension Serous otitis media Nausea vomiting and diarrhea Gout attack Surgical History No significant past surgical history Family History Other No significant family history Social History Smoking Status: Unknown if ever smoked alcohol intake: never substance use type: denies use current occupational status: other Travel in the last 8 weeks: None household members: children housing: house ROS Obtained: Yes unobtainable due to endotracheal tube Physical Exam General General appearance: obtunded Comment: Mottled, purple Head Head exam: atraumatic Eye Eye exam: Present other (Pupils 4 to 5 mm, unresponsive bilaterally) ENT ENT exam: Present normal oropharynx Neck Neck exam: Present normal inspection Chest Chest inspection: Present other (Chest deformity and obvious rib fractures noted after CPR.) Respiratory Respiratory exam: Present other (Bilateral breath sounds after intubation and on ventilator) Cardiovascular Cardiovascular exam: Present regular rate and irregular rhythm Abdominal Exam Abdominal exam: Present soft exam: Present normal inspection Extremities Exam Extremities exam: Present cyanosis Neurological Exam Neurological exam: Present other (Obtunded, GCS 3) Psychiatric Psychiatric exam: Present other (Obtunded) Skin Skin exam: Present pallor and mottled Medical Decision Making Medical Records Medical records reviewed: Yes I reviewed the patient's medical records. Adeel Inquiry Pt receiving controlled substance: No Vital Signs: 10/16/23 03:56 10/16/23 04:19 10/16/23 04:30 Temperature 95.2 F L Temperature Source Core Pulse Rate Respiratory Rate 22 32 H Blood Pressure 02 Sat by Pulse Oximetry 88 L 88 L Oxygen Delivery Method Mechanical Ventilation Oxygen Flow Rate (LPM) 15 10/16/23 04:40 10/16/23 04:45 10/16/23 04:50 Temperature 96.5 F L 97.2 F L 97.5 F L Temperature Source Pulse Rate 92 H 90 90 Respiratory Rate 32 H 33 H 33 H Blood Pressure 207/164 H 161/130 H 142/126 H 02 Sat by Pulse Oximetry 89 L 87 L 89 L Oxygen Delivery Method Mechanical Ventilation Oxygen Flow Rate (LPM) 10/16/23 04:55 10/16/23 05:20 10/16/23 05:30 Temperature 96.4 F L 97.7 F 97.7 F Temperature Source Pulse Rate 90 85 85 Respiratory Rate 34 H 95 H 31 H Blood Pressure 166/115 H 156/124 H 154/143 H 02 Sat by Pulse Oximetry 91 L 95 97 Oxygen Delivery Method Mechanical Ventilation Mechanical Ventilation Oxygen Flow Rate (LPM) 10/16/23 05:47 10/16/23 06:00 10/16/23 06:30 Temperature 97.7 F 97.9 F 98.1 F Temperature Source Pulse Rate 82 80 80 Respiratory Rate 30 H 31 H 29 H Blood Pressure 168/121 H 170/117 H 158/149 H 02 Sat by Pulse Oximetry 98 98 100 Oxygen Delivery Method Oxygen Flow Rate (LPM) 10/16/23 06:45 Temperature 98.1 F Temperature Source Core Pulse Rate 80 Respiratory Rate 29 H Blood Pressure 158/149 H 02 Sat by Pulse Oximetry Oxygen Delivery Method Mechanical Ventilation Oxygen Flow Rate (LPM) Lab Data Lab results reviewed: Yes I reviewed the patient's lab results. Lab Results 10/16/23 04:00: WBC 19.0 H, RBC 4.58 L, Hgb 15.9, Hct 44.2, MCV 96.5 H, MCH 34.7 H, MCHC 36.0 H, RDW 14.4, Plt Count 285, MPV 9.7, Neut % (Auto) 33.5 L, Lymph % (Auto) 56.1 H, [place] % (Auto) 6.2, Eos % (Auto) 1.5, Baso % (Auto) 2.7 H, Neut # (Auto) 6.4, Lymph # (Auto) 10.7 H, [place] # (Auto) 1.2 H, Eos # (Auto) 0.3, Baso # (Auto) 0.5 H, Total Counted 100, Neutrophils % (Manual) 40 L, Lymphocytes % (Manual) 56 H, Monocytes % (Manual) 3, Eosinophils % (Manual) 1, Platelet Estimate Normal, RBC Morphology Normal, PT 10.5, INR 0.97, APTT 26.2, Sodium 144, Potassium 4.5, Chloride 110 H, Carbon Dioxide 26, Anion Gap 12.5, BUN 13, Creatinine 1.10, Estimated Creat Clear 132, Estimated GFR 71, Est GFR ( Amer) 86, Glucose 154 H, Calcium 9.6, Magnesium 2.3, Total Bilirubin 0.4, AST 40, ALT 26, Alkaline Phosphatase 97, Troponin I 0.06 H, NT-Pro-B Natriuret Pep 61.4, Total Protein 6.2 L, Albumin 3.4 L, Globulin 2.8, Albumin/Globulin Ratio 1.2 10/16/23 05:03: Specimen Source Left radial, O2 % 100, ABG pH 7.09 L*, ABG pCO2 44.1, ABG pO2 68.0 L, ABG HCO3 13.1 L, ABG Total CO2 14.5 L, ABG O2 Saturation 89 L, ABG Base Excess -16.7 L, Jonathan Test Non applicable, Vent Rate 18, Tidal Volume 420 10/16/23 05:40: Urine Color Other, Urine Appearance Turbid, Urine pH 7.5, Ur Specific [place] 1.020, Urine Protein 3+, Urine Glucose (UA) Trace, Urine Ketones Negative, Urine Blood 3+, Urine Nitrate Positive, Urine Bilirubin 1+ A, Urine Urobilinogen 1.0, Ur Leukocyte Esterase Negative, Urine RBC Tntc, Urine WBC 3-5, Ur Squamous Epith Cells Occasional, Urine Bacteria 1+ 10/16/23 06:07: ABG pH 7.29 L, ABG pCO2 32.4 L, ABG pO2 171.6 H, ABG HCO3 15.4 L, ABG Total CO2 16.4 L, ABG O2 Saturation 99, ABG Base Excess -11.1 L 10/16/23 04:00 10/16/23 04:00 Orders (Tests/Meds): ED MEDICATIONS Discontinued Medications Generic Name Dose Route Start Last Admin Trade Name Freq PRN Reason Stop Dose Admin Diphenhydramine HCl 50 mg 10/16/23 06:17 Diphenhydramine 50mg/Ml Vial IV 10/16/23 06:18 ONCE ONE Diphenhydramine HCl 50 mg 10/16/23 06:23 Diphenhydramine 50mg/Ml Vial IV 10/16/23 06:24 ONCE ONE Epinephrine HCl 1 mg 10/16/23 05:20 10/16/23 04:17 Epinephrine 0.1 Mg/Ml 10ml Syringe (Crash Cart) IV 11/15/23 05:19 1 mg NEEDED PRN Administration Code Blue Med Administration Famotidine 20 mg 10/16/23 06:23 Famotidine 20mg/2ml Vial IV 10/16/23 06:24 ONCE ONE Fentanyl Citrate 50 mcg 10/16/23 06:17 Fentanyl 100mcg/2ml Vial IV 10/16/23 18:17 Q3MINP PRN Moderate to Severe Pain (4-10) Fentanyl Citrate 25 mcg 10/16/23 06:17 Fentanyl 250mcg/5ml Vial IV 10/16/23 18:17 Q3MINP PRN Moderate to Severe Pain (4-10) Fentanyl Citrate 50 mcg 10/16/23 06:17 Fentanyl 250mcg/5ml Vial IV 10/16/23 18:17 Q3MINP PRN Moderate to Severe Pain (4-10) Fentanyl Citrate 25 mcg 10/16/23 06:17 Fentanyl 100mcg/2ml Vial IV 10/16/23 18:17 Q3MINP PRN Moderate to Severe Pain (4-10) Flumazenil 0.2 mg 10/16/23 06:17 Flumazenil 0.1mg/Ml 5ml Vial IV 10/16/23 18:17 NEEDED PRN Sedation Heparin Sodium (Porcine) 10,000 unit 10/16/23 06:17 Heparin 1,000 Units/Ml 10ml Vial ([employer]) IV 10/16/23 10:17 NEEDED PRN 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 Golf 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 Heparin Sodium/Sodium Chloride 3,000 unit 10/16/23 06:17 Heparin 1,000 Units/500ml Ns ([employer]) IV 10/16/23 06:18 ONCE ONE Hydralazine HCl 20 mg 10/16/23 06:17 Hydralazine 20mg/Ml Vial IV 10/16/23 10:17 ONCE PRN sbp>160 Amiodarone HCl 300 mg/ Sodium 31 mls @ 200 mls/hr 10/16/23 04:04 10/16/23 04:04 Chloride IV 10/16/23 04:13 200 mls/hr ONCE ONE Administration Adenosine 180 mg/ Sodium 90 mls @ 615.6 mls/hr 10/16/23 06:17 Chloride IV 10/16/23 10:17 ONCE PRN fractional flow reserve 180 MCG/KG/MIN Adenosine 90 mg/ Sodium 90 mls @ 1,231.2 mls/hr 10/16/23 06:17 Chloride IV 10/16/23 10:17 ONCE PRN fractional flow reserve 180 MCG/KG/MIN Sodium Chloride 1,000 mls @ 25 mls/hr 10/16/23 06:30 Sod Chloride 0.9% 500ml Bag IV 10/17/23 06:17 .Q25H MARILYN Iopamidol 100 ml 10/16/23 05:20 Iopamidol-370 (76%);100ml Bottle IV 10/16/23 05:21 ONCE ONE Labetalol HCl 20 mg 10/16/23 06:17 Labetalol 20mg/4ml Syringe IV 10/16/23 10:17 ONCE PRN sbp>160 Lidocaine HCl 20 ml 10/16/23 06:17 Lidocaine 1% 10ml Mdv IJ 10/16/23 06:18 ONCE ONE Lidocaine HCl 20 ml 10/16/23 06:17 Lidocaine 1% 5ml Pf Vial IJ 10/16/23 06:18 ONCE ONE Methylprednisolone Sodium Succinate 125 mg 10/16/23 06:23 Methylprednisolone Sod Succ 125mg Vial IV 10/16/23 06:24 ONCE ONE Midazolam HCl 1 mg 10/16/23 06:17 Midazolam 2mg/2ml Vial IV 10/16/23 18:17 Q3MINP PRN Sedation Midazolam HCl 1 mg 10/16/23 06:17 Midazolam Hcl 1mg/1ml 5ml Vial IV 10/16/23 18:17 Q3MINP PRN Sedation Naloxone HCl 0.4 mg 10/16/23 06:17 Naloxone 0.4mg/Ml Vial IV 10/16/23 18:17 Q5MINP PRN Decreased Respirations Nitroglycerin 800 mcg 10/16/23 06:17 Nitroglycerin 800mcg/8ml Syr ([employer]) IA 10/16/23 10:17 NEEDED PRN 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 Golf Teacher Protamine Sulfate 50 mg 10/16/23 06:17 Protamine Sulfate 50mg/5ml Vial ([employer]) IV 10/16/23 10:17 ONCE PRN act>200 Sodium Chloride 50 ml 10/16/23 05:20 0.9 % Sodium Chloride 50 Ml Vial IV 10/16/23 05:21 ONCE ONE Sodium Chloride 10 ml 10/16/23 05:20 Sodium Chloride 0.9% 10ml Syr (Rad Only) IV 11/15/23 05:19 NEEDED PRN Maintain IV Site Sodium Chloride 8 ml 10/16/23 06:23 Sodium Chloride 0.9% 10ml Vial IV 11/15/23 06:22 NEEDED PRN dilute pepcid Verapamil HCl 2.5 mg 10/16/23 06:17 Verapamil 2.5mg/Ml 2ml Vial IV 10/16/23 06:18 ONCE ONE ORDERS Category Date Time Status CT abdomen pelvis w con Stat Cat Scan 10/16/23 04:[address] cervical spine wo con Stat Cat Scan 10/16/23 04:[address] head/brain wo con Stat Cat Scan 10/16/23 04:46 Completed CTA Chest [CT angio chest - dissection] Stat Cat Scan 10/16/23 04:46 Taken Cardiology Consult [Consult to Cardiology] [CONS] Stat Cons 10/16/23 06:37 Active Consult to Pulmonology [CONS] Stat Cons 10/16/23 06:37 Active CXR --portable [XR chest portable] Stat Exams 10/16/23 05:18 Completed BNP [NT Pro Brain Natriuretic Pep.] Stat Lab 10/16/23 04:00 Completed Basic Metabolic Panel Stat Lab 10/16/23 06:17 Ordered Basic Metabolic Panel Stat Lab 10/16/23 06:23 Ordered CBC w/Auto Diff [Complete Blood Count Auto Diff] Stat Lab 10/16/23 04:00 Completed CMP [Comprehensive Metabolic Panel] Stat Lab 10/16/23 04:00 Completed Complete Blood Count Auto Diff Stat Lab 10/16/23 06:17 Ordered Complete Blood Count Auto Diff Stat Lab 10/16/23 06:23 Ordered INR [Prothrombin Time INR] Stat Lab 10/16/23 04:00 Completed Magnesium Stat Lab 10/16/23 04:00 Completed PTT [Activated Partial Thrombo Time] Stat Lab 10/16/23 04:00 Completed Troponin I Q3H Lab 10/16/23 04:00 Completed UA [Urinalysis and Microscopic] Stat Lab 10/16/23 05:40 Completed ABG [Arterial Blood Gas] Stat RT 10/16/23 06:07 Completed Arterial Blood Gas Routine RT 10/16/23 05:03 Completed ECG Data Tracing #1: I reviewed this ECG and interpreted as documented below: Irregular rhythm, rate of 89, wide-complex, significant artifact limits any interpretation, no obvious STEMI, RBBB ECG initial impression date: 10/16/23 ECG initial impression time: 04:27 Tracing #2: I reviewed this ECG and interpreted as documented below: STEMI. Sinus rhythm with first-degree AV block, wide-complex, obvious ST elevation in lead I, aVL, V2, V4, V5 ECG initial impression date: 10/16/23 ECG initial impression time: 05:48 Medical Decision Narrative: 48-year-old male with history of hypertension hyperlipidemia, prediabetic presents in cardiac arrest. Per family, patient complained of heartburn tonight, got up to be around 3:30 AM and was heard to fall. immediately went to find him, he had fallen onto a trash can near the bed. She could not get him out of that position. By the time first responders arrived the patient was in cardiac arrest and CPR was initiated. Exact downtime unknown, apparently not more than 5 minutes. Patient was shocked once and was given epi once en route. CPR was initiated at approximately 345 by EMS. See nursing documentation for full details of ACLS. Patient was intubated by me on arrival was 7.5 tube confirmed with breath sounds, direct visualization and color change. Patient got approximately 25 minutes of CPR, 300 Amio, 7 rounds of epi, 1 shock for V. tach in the ED. Right radial art line was attempted, right femoral art line was successfully placed in an emergent fashion. Vitals after ROSC show blood pressures on her line with systolics in the 150s, heart rate in the 90s, end-tidal in the 30s, pulse ox in the high 80s on 100% on the vent. Bedside ultrasound was performed, technically difficult, globally depressed cardiac function, possible trace pericardial effusion, no obvious right heart strain. Full EKGs were obtained, interpretation significantly limited by artifact. Shows wide-complex regular rhythm but does not meet STEMI criteria. I had an interactive discussion with Dr. Pittman who reviewed the EKGs as well. He was sent to CT scanner for CT head, CTA chest, CT abdomen pelvis. Differential includes but is not limited to ND, dissection, arrhythmia, PE. Laboratory workup independently interpreted by me and significant for metabolic acidosis with pH 7.09, lactate 7.5. Electrolytes unremarkable, patient ventilating appropriately with pCO2 44 though oxygenation is low. Other labs significant for leukocytosis, normal renal function, initial elevated troponin at 0.06.. Imaging independently interpreted by me and significant for CT head without acute intracranial bleeding. CT angio chest shows no acute PE, no aortic dissection, shows very large left pneumothorax. CT PE shows no acute pathology. CT C-spine shows possible acute C6 fracture. radiology read for full review of final results. A left 14 [address] [address]gio chest tube was placed by me, confirmed on repeat xray. Patient is intermittently breathing against the vent and moving his upper extremities to pain, remains off sedation, not requiring pressors. Repeat EKG obtained and now demonstrates ST elevation in lead I, AVL, V2, V4, V5. Dr. Pittman was again immediately consulted, patient will be taken immediately to the [facility]. Repeat gas prior to [facility] [employer] transfer shows pH 7.29, pCO2 in the 30s, pO2 normalized, lactate 2.03. Given patient history, exam and workup, patient's presentation most likely represents acute myocardial infarction and cardiac arrest, large left pneumothorax as result of numerous rib fractures, C6 cervical fracture likely a result of fall. Patient was transferred to the [facility] in stable condition. Procedures Chest Tube Chest Tube 1: Chest Tube Location: left (14 [address] sergio) and anterior axillary line Chest Tube Prep: Yes betadine prep and sterile drapes applied Incision Made With: #11 blade Post Procedure: sutured to skin and sterile dressing applied Tube Drainage: other (air) Post Procedure CXR?: Yes Patient Tolerated Procedure: Yes Intubation Mallampati Score:: Class III sedative: none Laryngoscope: Louis (3) Assist Device Used: fiber optic device ET Tube Size: 7.5 ET Tube Uncuffed: No Tube Secured Depth (cm): 21 Tube Secured Location: lips Tube Placement Confirmation: visualized tube passing through cords, equal breath sounds bilaterally and confirmation by capnometry Patient Tolerated Procedure: well Intubation Complications: none Arterial Line Size (Gauge): 20 Technique Used: guide wire technique Post-Procedure: line sutured into place Site: right and femoral Additional Comments: line was placed emergently without full sterile technique. A right radial arterial line was attempted but unsuccessful. Critical Care Critical Care Time Critical Care Time: Yes Attestation: On 10/16/23, the high probability of a clinically significant, sudden or life threatening deterioration of the following system(s) respiratory, cardiac, required my full and direct attention, intervention and personal management. The time I documented below is in addition to time spent performing reported procedures but includes the following listed in this critical care notation. Total Time Total Critical Care Time: 100
[2023-10-16 04:55] LABS: Basophils # 0.5 K/mm3 (0-0.2); Basophils % 2.7 % (0.1-2.0); Eosinophils # 0.3 K/mm3 (0.0-0.4); Eosinophils % 1.5 % (0.1-12.0); Hematocrit 44.2 % (42.0-52.0); Hemoglobin 15.9 g/dL (14.1-18.0); Lymphocytes # 10.7 K/mm3 (0.7-4.5); Lymphocytes % 56.1 % (10-50); Mean Corpuscular Hemoglobin 34.7 pg (27.0-31.2); Mean Corpuscular Volume 96.5 fl (80-94); Mean Platelet Volume 9.7 fl (7.4-10.4); Monocytes # 1.2 K/mm3 (0.1-1.0); Monocytes % 6.2 % (1.7-9.3); Neutrophils # 6.4 K/mm3 (1.8-7.8); Neutrophils % 33.5 % (37.0-80.0); Platelet Count 285 K/mm3 (142-424); Red Blood Count 4.58 M/mm3 (4.60-6.20); Red Cell Distribution Width 14.4 % (11.5-17.5)
[2023-10-16 04:56] LABS: Chloride 110 mmol/L (98-107); Sodium 144 mmol/L (136-145)
[2023-10-16 04:57] LABS: Potassium 4.5 mmoL/L (3.5-5.1)
[2023-10-16 04:59] LABS: Alanine Aminotransferase 26 U/L (12-78); Albumin Level 3.4 g/dl (3.5-5.0); Albumin/Globulin Ratio 1.2 (1.1-1.8); Alkaline Phosphatase 97 U/L (38-126); Anion Gap 12.5 mEq/L (5-15); Aspartate Amino Transferase 40 U/L (17-59); Bilirubin,Total 0.4 mg/dl (0.2-1.3); Blood Urea Nitrogen 13 mg/dl (9-20); Calcium 9.6 mg/dl (8.4-10.2); Carbon Dioxide 26 mmol/L (22.0-30.0); Creatinine Clearance Estimated 132 mL/min (50-200); Estimated Glomerular Filt Rate 71 ml/min (>60); GFR (African American) 86 ML/MIN (>60); Globulin 2.8 g/dL (1.3-3.2); Glucose 154 mg/dl (74-100); MANUAL DIFFERENTIAL MANUAL DIFFERENTIAL (MANUAL DIFF); Total Protein,Serum 6.2 g/dl (6.3-8.2)
[2023-10-16 05:00] LABS: INR 0.97 (0.9-1.1); Magnesium 2.3 mg/dl (1.6-2.3); Prothrombin Time 10.5 seconds (10.1-12.5)
--- NOTE | 2023-10-16 05:00 | PC.NURSE ---
0355 Patient arrived to the ER via EMS. 20G RAC placed by EMS. One 200J shock delivered in the field at 0350. One 1mg EPI given at 0354. 0358 intubated 7.5 ET, 21 @ lip, color change noted. 0358 1mg Epinerphrine administered 0400 pulse check, PEA, resumed high quality CPR 0401 1mg Epinephrine administered 0402 pulse check, v-tach, shock delivered 200J, resumed high quality CPR 0404 300mg amiodarone administered 0404 1mg Epinephrine administered 0405 pulse check, PEA, resumed high quality CPR 0407 pulse check, PEA, provider checking for cardiac contractility/movement with ultrasound, resumed high quality CPR 0408 1mg Epinephrine administered 0409 pulse check, PEA, resumed high quality CPR 0411 pulse check, PEA, resumed high quality CPR 0411 1mg Epinephrine administered 0413 pulse check, PEA, resumed high quality CPR 0414 1mg Epinephrine administered 0415 pulse check, PEA, resumed high quality CPR 0417 1mg Epinephrine administered 0417 pulse check, PEA, resumed high quality CPR 0418 right Femoral ART line placed by Dr. Hernandez at this time 0419 pulse check, pulse detected at this time. Dr. Hernandez spoke with family and updated. Obtained vitals at the time of ROSC: EtCO2 26, SpO2 90, HR 80 0419 16F Temperature sensing chavez placed. Temp 95.2F 0424 bedside ultrasound of the heart performed by Dr. Hernandez 0427 EKG obtained 0429 x-ray performed, ET placement confirmed 0430 Dr. Hernandez consulted with Dr. Pittman 0446 placed 18 F OG tube at this time, gastric contents aspirated 0446 ART Line zeroed successfully: Etco2 32, HR 90, 97.3F, RR 32, Spo2 89% 0447 Patient being prepared to go to CT with respiratory, RN, monitor.
[2023-10-16 05:04] LABS: ABG Base Excess -16.7 mmol/L (-2.4-2.3); ABG HCO3 13.1 mmhg (22.0-26.0); ABG Oxygen Saturation 89 % (90-100); ABG PCO2 44.1 mmhg (35.0-45.0); ABG TCO2 14.5 mmhg (23-27); Allen's Test Non Applicable; Oxygen 100 %; Tidal Volume 420; Vent Rate 18
[2023-10-16 05:05] LABS: ABG PH 7.09 mmol/L (7.35-7.45); Source Left Radial
[2023-10-16 05:09] LABS: NT Pro Brain Natriuretic Pep. 61.4 pg/mL (0-125)
[2023-10-16 05:11] LABS: Activated Partial Thrombo Time 26.2 seconds (22.8-30.6); Troponin I 0.06 ng/ml (0.00-0.034)
--- NOTE | 2023-10-16 05:16 | PC.NURSE ---
Patient returned from CT. Dr. Hernandez requests setup of left chest tube placement.
--- NOTE | 2023-10-16 05:18 | XR_ITS ---
PROCEDURE INFORMATION: Exam: XR Chest Exam date and time: 10/16/2023 4:24 AM Age: 48 years old Clinical indication: Other: Cardiac arrest TECHNIQUE: Imaging protocol: Radiologic exam of the chest. Views: 1 view. COMPARISON: No relevant prior studies available. FINDINGS: Tubes, catheters and devices: Endotracheal tube and nasogastric tube in appropriate position. Lungs: Left basal consolidation. Right lung field is clear. Pleural spaces: Left pleural drain in place with no pneumothorax. Heart/Mediastinum: The heart is markedly enlarged. Bones/joints: Unremarkable. There is no acute fracture present. IMPRESSION: 1. Left pleural drain in place with no pneumothorax. 2. Endotracheal tube and nasogastric tube in appropriate position. 3. Severe cardiomegaly. 4. Left basal consolidation.
[2023-10-16 05:29] LABS: Eosinophils % 1 % (0-3); Lymphocytes % 56 % (10-50); Monocytes % 3 % (2-9); Neutrophils % 40 % (42-76); Platelet Estimate Normal; RBC Morphology Normal; Total Cells Counted 100
[2023-10-16 05:43] LABS: Microscopic, Urine URINE MICROSCOPIC (MICROSCOPIC)
[2023-10-16 05:46] LABS: Appearance,Urine TURBID (Clear); Blood, Urine 3+ (Negative); Color,Urine OTHER (Yellow); Glucose,Urine (UA) TRACE (Negative); Ketones,Urine Negative (Negative); Leukocyte Esterase,Urine Negative (Negative); Nitrate,Urine POSITIVE (Negative); PH,Urine 7.5 (5.0-8.5); Protein,Urine 3+ (Negative)
--- NOTE | 2023-10-16 05:48 | ECG_ITS ---
APPROVED REPORT Exam: Resting ECG HR:80 bpm ECG Measurements Heart Rate 80 AXES WI 235 P 34 QRSd 174 QRS -60 QT 410 T 97 QTc 447 Conclusion SINUS RHYTHM WITH FIRST DEGREE AV BLOCK INTRAVENTRICULAR CONDUCTION DELAY [130+ ms QRS DURATION] INFERIOR MYOCARDIAL INFARCTION , OF INDETERMINATE AGE [40+ ms Q WAVE AND/OR ST/T ABNORMALITY IN II/aVF] ANTEROSEPTAL MYOCARDIAL INFARCTION , PROBABLY RECENT [40+ ms Q WAVE IN V1-V4] MARKED ST ELEVATION, CONSIDER LATERAL INJURY [MARKED ST ELEVATION W/O NORMALLY INFLECTED T-WAVE IN I/aVL/V5/V6] ACUTE [place] Electronically signed by : JURGEN WEATHERS, 10/16/2023 16:10:00
--- NOTE | 2023-10-16 05:50 | PC.NURSE ---
Repeat EKG obtained, Dr. 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
[2023-10-16 05:59] LABS: Bilirubin,Urine 1+ (Negative)
--- NOTE | 2023-10-16 06:04 | PC.NURSE ---
Patient placed in rigid c-collar related to possible acute cervical compression fracture.
[2023-10-16 06:09] LABS: Bacteria,Urine 1+ /lpf; RBC,Urine TNTC #/hpf (0-3); Squamous Epithelial Cell,Urine Occasional #/hpf (0-5)
[2023-10-16 06:29] LABS: ABG Base Excess -11.1 mmol/L (-2.4-2.3); ABG HCO3 15.4 mmhg (22.0-26.0); ABG Oxygen Saturation 99 % (90-100); ABG PCO2 32.4 mmhg (35.0-45.0); ABG PH 7.29 mmol/L (7.35-7.45); ABG PO2 171.6 mmhg (80-100); ABG TCO2 16.4 mmhg (23-27)
--- NOTE | 2023-10-16 06:35 | PC.NURSE ---
rounded on family in triage room at this time. Family voices no needs.
[2023-10-16] MEDS: VECURONIUM BROM 10MG/10ML VIAL 10 MG IV (06:54)
[2023-10-16] MEDS: VERAPAMIL 2.5MG/ML 2ML VIAL 2.5 MG IV (07:12)
[2023-10-16] MEDS: diphenhydrAMINE 50MG/ML VIAL 50 MG IV (07:12)
[2023-10-16] MEDS: NITROGLYCERIN 800MCG/8ML SYR (CATH LAB) 800 MCG IA (07:12)
[2023-10-16] MEDS: HEPARIN 1,000 UNITS/ML 10ML VIAL (CATH LAB) 10000 UNIT IV (07:12)
[2023-10-16] MEDS: LIDOCAINE 1% 10ML MDV 20 ML IJ (07:12)
[2023-10-16] MEDS: 0.9 % SODIUM CHLORIDE 500 ML 25 ML IV (07:13)
[2023-10-16] MEDS: HEPARIN 1,000 UNITS/500ML NS (CATH LAB) 3000 UNIT IV (07:13)
[2023-10-16 07:32] LABS: Allen's Test Patient Unable; Oxygen 100% %; PEEP 10; Source A- Line; Tidal Volume 420; Vent Rate 18
[2023-10-16] MEDS: NITROPRUSSIDE SODIUM 50 MG in DEXTROSE 5 % IN WATER 250 ML 10.3399999999999999 MG IV (07:37)
[2023-10-16] MEDS: TICAGRELOR 90MG TABLET 180 MG PO (07:37)
[2023-10-16] MEDS: propofoL 100 ML 6.83999999999999986 MG IV (07:38)
[2023-10-16] MEDS: ASPIRIN 81MG CHEWABLE TABLET 324 MG PO (08:00)
[2023-10-16] MEDS: IOPAMIDOL-370 (76%);100ML BOTTLE 130 ML IV (08:07)
[2023-10-16 08:09] LABS: CATHL Activated Clotting Time 333 SEC (74-125)
--- NOTE | 2023-10-16 08:30 | SUR.PHASEII ---
Family updated on POC
--- NOTE | 2023-10-16 08:38 | SUR.PHASEII ---
Vent settings: 100% FiO2, TV 440, R 22, PEEP 8. Propofol @ 12mcg/kg/min. Nipride @ 1.0 mcg/kg/min. Arterial line to (R) femoral. Chest tube to (L). Temp sensing 16 fr F/C. IV #18 RAC, #20 LAC.
--- NOTE | 2023-10-16 08:48 | SUR.PHASEII ---
Family at bedside
--- NOTE | 2023-10-16 09:15 | SUR.PHASEII ---
Report given to Skye Hou at [facility], EMS called for transport
--- NOTE | 2023-10-16 09:30 | SUR.PHASEII ---
EMS here to transport patient
== END 2023-10-16 06:46 | disposition short-term general hospital (02) ==
PROVIDERS: Internal Medicine; Visit Provider Emergency Medicine
DX: I21.09 ST elevation (STEMI) myocardial infarction involving other coronary artery of anterior wall (principal); I25.10 Atherosclerotic heart disease of native coronary artery without angina pectoris; I10 Essential (primary) hypertension; Z79.899 Other long term (current) drug therapy; S22.43XA Multiple fractures of ribs, bilateral, initial encounter for closed fracture; S27.0XXA Traumatic pneumothorax, initial encounter; W01.0XXA Fall on same level from slipping, tripping and stumbling without subsequent striking against object, initial encounter; Y92.013 Bedroom of single-family (private) house as the place of occurrence of the external cause; I46.9 Cardiac arrest, cause unspecified; R57.0 Cardiogenic shock; S12.591A Other nondisplaced fracture of sixth cervical vertebra, initial encounter for closed fracture
CPT/HCPCS: 32551; 51702; 70450; 71045; 71275; 72125; 74177; 80053; 81001; 82803; 83735; 83880; 84484; 85007; 85025; 85347; 85610; 85730; 92928; 92973; 93005; 93458; 94002; 99291; 99292; C1725; C1769; C1876; C9600; J0282; J1644; J2704; Q9967